=== PATIENT | female | born 1940 | race Caucasian/White ===

== ENCOUNTER 2018-08-19 12:22 | Inpatient (IN) ==
[2018-08-19] MEDS ORDERED: IOPAMIDOL 100 ML BOTTLE IV ONE (12:23)
--- NOTE | 2018-08-19 12:44 | Cat Scan Report ---
CLINICAL INFORMATION: COMPARISON: None. TECHNIQUE: 2.5 mm helical slices were obtained in the skull base to vertex. Following reconstruction, axial reformatted images were reviewed at bone and parenchymal windows. The exam was performed using radiation dose optimization techniques including, but not limited to, automated exposure control, adjustment of the mA and/or kV according to patient size and use of iterative reconstruction technique. FINDINGS: The ventricles, sulci, fissures, and cisterns are symmetrically are compatible with mild atrophy. No subdural hemorrhage or extra-axial fluid collection appreciated. Patchy chronic ischemic changes noted in the deep cerebral white matter are expanded for age. There is a vague 2.5 cm low-attenuation region in the left frontal subcortical and deep cerebral white matter which may represent ischemia or, less likely, underlying mass. Moderate remote wedge-shaped infarct in the inferior right cerebellum is smaller adjacent lacunar infarct. Bone windows show no osseous abnormality. IMPRESSION: 2.5 cm vague low-attenuation lesion in the deep/subcortical white matter of the left frontal lobe. This is likely a subacute infarct on: However, the possibility of underlying mass cannot be excluded. Suggest head CT with contrast as the next step in evaluation Moderate remote wedge-shaped in infarct in the inferior right cerebellum with small adjacent remote lacunar infarct. Mild atrophy and chronic ischemic changes in the cerebral white matter. Interpreted and Authenticated by: Wesley Edwards 08/19/18
[2018-08-19 13:06] LABS: Basophils # (Auto) 0.1 K/mcL (0.0-0.3); Basophils % (Auto) 1.7 % (0.0-2.0); Eosinophils # (Auto) 0.4 K/mcL (0.0-0.7); Eosinophils % (Auto) 4.4 % (0.0-7.0); Granulocytes % (Auto) 56.4 % (38.0-78.0); Lymphocytes # (Auto) 2.4 K/mcL (1.5-4.8); Lymphocytes % (Auto) 30.4 % (15.5-49.0); Mean Cell Volume 91.7 fL (80.0-100.0); Mean Corpuscular HGB Conc 33.1 g/dL (31.0-36.0); Monocytes # (Auto) 0.6 K/mcL (0.1-0.9); Monocytes % (Auto) 7.1 % (1.0-12.0); Platelet Count 216 K/mcL (140-440); RBC 4.73 M/mcL (4.00-5.20); Red Cell Distribution Width 12.6 % (11.5-14.5)
[2018-08-19 13:33] LABS: ALT/SGPT 9 U/l (0-40); Albumin 4.3 gm/dL (3.2-5.2); Albumin/Globulin Ratio 1.3 (1.0-2.3); Alkaline Phosphatase 105 U/L (39-117); Blood Urea Nitrogen 13 mg/dl (8-23)
--- NOTE | 2018-08-19 14:59 | Emergency Department Note ---
Neuro HPI - General Chief Complaint: Stroke Symptoms Stated Complaint: stroke symptoms Time Seen by Provider: 08/19/18 12:35 Source: patient, family Mode of arrival: ambulatory Limitations: altered mental status - History of Present Illness HPI Narrative: 78-year-old female with history of altered mental status for the last 2 days especially noted expressive aphasia. She is unable to give me much in the way of meaningful history but she can answer yes or no questions. Her son notes that it has been at least 2 days maybe 3 since she was last normal. Normally she is able to answer questions very well and is very sharp. On Anticoagulants: No - Related Data Home Medications: Previous Rx's Medication Instructions Recorded buspirone 7.5 mg tablet 7.5 mg PO BID #60 tab 03/28/18 conjugated estrogens 1.25 mg tablet 1.25 mg PO QDAY #90 tab 05/07/18 ipratropium bromide 42 mcg (0.06 2 spray INTRANASAL TID #15 ml 06/11/18 %) nasal spray umeclidinium 62.5 mcg-vilanterol 1 inh INHALATION Q24H #60 each 06/11/18 25 mcg/actuation powdr for inhalation clobetasol 0.05 % topical ointment 1 applic TOPICAL QDAY PRN #30 g 07/02/18 levothyroxine 50 mcg tablet 50 mcg PO QDAY #90 tab 08/06/18 Allergies/Adverse Reactions: Allergies Allergy/AdvReac Type Severity Reaction Status Date / Time No Known Drug Allergies Allergy Unverified 07/02/18 08:01 Review of Systems Limitations: ROS unobtainable due to patients medical condition Past Medical History - Past Medical History PMF Narrative: Family History (Last Reviewed 06/27/17 @ 08:18 by Liz Espino CMA) Mother Stroke Unknown Stroke Medical History (Last Reviewed 06/27/17 @ 08:18 by Liz Espino CMA) Hormone replacement therapy (postmenopausal) (Acute) COPD (chronic obstructive pulmonary disease) (Acute) Tobacco abuse (Chronic) Osteoporosis (Chronic) Joint pain (Chronic) Muscle pain (Chronic) Past Surgical History (Last Reviewed 06/27/17 @ 08:18 by Liz Espino CMA) Hx of tonsillectomy (Acute) H/O colonoscopy (Chronic) H/O: hysterectomy (Chronic) Source: old records reviewed Surgical history ED: Reports: hysterectomy, tonsillectomy - Social History smoking status: Former smoker Physical Exam Thin female no acute distress resting comfortably. Normocephalic atraumatic. Conjunctive are clear sclerae nonicteric. No nasal discharge or congestion. Oropharynx is pink and moist. Posterior pharynx is clear. Neck is supple without lymphadenopathy thyromegaly or carotid bruit. Heart is regular rate and rhythm no murmur appreciated. Lungs are clear to auscultation bilaterally without wheezes rales rhonchi or respiratory distress. Abdomen soft nontender nondistended. No peritoneal signs or guarding. No rigidity or CVA tenderness. No peripheral edema. +2 radial pulse. Alert and does appear to be oriented as well judging by her answers to yes or no questions but she does have significant expressive aphasia and cannot answer complex questions. Further it is not clear if her answers are reliable either. Face is symmetrical. Cranial nerves II through XII grossly intact. Bilateral marionette performer are equal and arm strength and leg strength bilaterally appear to be normal. She can sit up for my exam without any difficulty or assistance. At this time it seems that her only neurologic deficit is his significant expressive aphasia Limitations: altered mental status Course Vital Signs Temperature 98.1 F 08/19/18 12:26 Pulse Rate 80 08/19/18 12:26 Respiratory Rate 13 08/19/18 12:26 Blood Pressure 183/111 08/19/18 12:26 Pulse Oximetry (%) 98 08/19/18 12:26 Temperature 97.8 F 08/20/18 04:00 Pulse Rate 82 08/20/18 04:00 Respiratory Rate 18 08/20/18 04:00 Blood Pressure 136/87 08/20/18 04:00 Pulse Oximetry (%) 94 08/20/18 04:00 Neuro Symptoms/Deficit - Lab Data Lab results reviewed: Yes I reviewed the patient's lab results. Result diagrams: 08/19/18 12:33 08/19/18 12:33 Lab Results 08/19/18 08/19/18 08/19/18 Range/Units 12:33 12:33 12:33 WBC 8.1 (4.5-11.0) K/mcL RBC 4.73 (4.00-5.20) M/mcL Hgb 14.4 (12.0-15.0) g/dL Hct 43.4 (36.0-48.0) % POC Hct 45.0 (36.0-48.0) % MCV 91.7 (80.0-100.0) fL MCH 30.3 (26.0-34.0) pg MCHC 33.1 (31.0-36.0) g/dL RDW 12.6 (11.5-14.5) % Plt Count 216 (140-440) K/mcL MPV 9.1 (7.4-10.4) fL Gran % 56.4 (38.0-78.0) % Lymph % (Auto) 30.4 (15.5-49.0) % [place] % (Auto) 7.1 (1.0-12.0) % Eos % (Auto) 4.4 (0.0-7.0) % Baso % (Auto) 1.7 (0.0-2.0) % Gran # 4.5 (1.8-8.0) K/mcL Lymph # (Auto) 2.4 (1.5-4.8) K/mcL [place] # (Auto) 0.6 (0.1-0.9) K/mcL Eos # (Auto) 0.4 (0.0-0.7) K/mcL Baso # (Auto) 0.1 (0.0-0.3) K/mcL POC PT 11.6 L (11.9-14.5) sec POC INR 1.0 (0.9-1.2) APTT 35 (20-37) sec POC Sodium 139 (133-145) mmol/L Sodium 138 (133-145) mmol/L POC Potassium 3.6 (3.3-5.1) mmol/L Potassium 3.7 (3.3-5.1) mmol/L POC Chloride 100 (96-108) mmol/L Chloride 101 (96-108) mmol/L Carbon Dioxide 24 (22-30) mmol/L POC Total CO2 25 (22-30) mmol/L Anion Gap 13.0 (8-16) POC BUN 14 (8-23) mg/dl BUN 13 (8-23) mg/dl Creatinine 1.0 (0.6-1.1) mg/dl POC Creatinine 0.8 (0.6-1.1) mg/dl GFR Calculation 54 Glucose 91 (70-105) mg/dL POC Glucose 90 (70-105) mg/dL Calcium 9.3 (8.6-10.4) mg/dl POC WB Ioniz Calcium 1.13 L (1.16-1.32) mmol/L Total Bilirubin 0.4 (0.0-1.0) mg/dL AST 16 (0-37) U/l ALT 9 (0-40) U/l Alkaline Phosphatase 105 (39-117) U/L Troponin T (0-0.03) ng/ml Total Protein 7.7 (5.9-8.4) gm/dL Albumin 4.3 (3.2-5.2) gm/dL Globulin 3.4 (2.2-3.7) gm/dL Albumin/Globulin Ratio 1.3 (1.0-2.3) 08/19/18 Range/Units 12:33 WBC (4.5-11.0) K/mcL RBC (4.00-5.20) M/mcL Hgb (12.0-15.0) g/dL Hct (36.0-48.0) % POC Hct (36.0-48.0) % MCV (80.0-100.0) fL MCH (26.0-34.0) pg MCHC (31.0-36.0) g/dL RDW (11.5-14.5) % Plt Count (140-440) K/mcL MPV (7.4-10.4) fL Gran % (38.0-78.0) % Lymph % (Auto) (15.5-49.0) % [place] % (Auto) (1.0-12.0) % Eos % (Auto) (0.0-7.0) % Baso % (Auto) (0.0-2.0) % Gran # (1.8-8.0) K/mcL Lymph # (Auto) (1.5-4.8) K/mcL [place] # (Auto) (0.1-0.9) K/mcL Eos # (Auto) (0.0-0.7) K/mcL Baso # (Auto) (0.0-0.3) K/mcL POC PT (11.9-14.5) sec POC INR (0.9-1.2) APTT (20-37) sec POC Sodium (133-145) mmol/L Sodium (133-145) mmol/L POC Potassium (3.3-5.1) mmol/L Potassium (3.3-5.1) mmol/L POC Chloride (96-108) mmol/L Chloride (96-108) mmol/L Carbon Dioxide (22-30) mmol/L POC Total CO2 (22-30) mmol/L Anion Gap (8-16) POC BUN (8-23) mg/dl BUN (8-23) mg/dl Creatinine (0.6-1.1) mg/dl POC Creatinine (0.6-1.1) mg/dl GFR Calculation Glucose (70-105) mg/dL POC Glucose (70-105) mg/dL Calcium (8.6-10.4) mg/dl POC WB Ioniz Calcium (1.16-1.32) mmol/L Total Bilirubin (0.0-1.0) mg/dL AST (0-37) U/l ALT (0-40) U/l Alkaline Phosphatase (39-117) U/L Troponin T < 0.01 (0-0.03) ng/ml Total Protein (5.9-8.4) gm/dL Albumin (3.2-5.2) gm/dL Globulin (2.2-3.7) gm/dL Albumin/Globulin Ratio (1.0-2.3) - Radiology Data Radiology results reviewed: Yes I reviewed the patient's radiology results. CT of the head shows a subacute left frontal CVA. Old right cerebellar infarct is noted - EKG Data EKG attestation: Yes I reviewed and interpreted this EKG. EKG results narrative: EKG shows a rate of 74 with left ventricular hypertrophy criteria likely. Low voltage precordial leads. Q waves in 2 3 aVF the inferior leads . sinus rhythm without evidence of current ischemia Disposition Pt seen by PARA PROFESSIONAL/PA only: No Clinical Impression: CVA (cerebral vascular accident) Qualifiers: CVA mechanism: unspecified Qualified Code(s): I63.9 - Cerebral infarction, unspecified Summary: Seen and evaluated promptly but as patient had been at least 2 days with symptoms she is out of the treatment window. Preliminary CT scan without contrast of the head shows subacute left temporal CVA consistent with history Laboratories are essentially normal. Tele-stroke contacted. I discussed the situation with Dr. Cabello, the tele-stroke neurologist, who agreed the patient needed further workup. He felt that patient could be admitted here and have that done; patient was not eligible for intervention and therefore did not need to go to [facility] I then discussed situation with Dr. Gallarod the hospitalist who agreed to accept patient for further care and evaluation here Disposition: Xfer As Inpt ([facility]) Condition: Fair
--- NOTE | 2018-08-19 16:06 | Cat Scan Report ---
CLINICAL INFORMATION: Code stroke COMPARISON: None. TECHNIQUE: 80 cc of Isovue-300 were injected intravenously , and using SmartPrep to maximize cerebral arterial opacification, 0.625 mm helical slices were obtained from the skull base through the cerebral vertex. Following reconstruction , sagittal, coronal and axial reformatted images were processed and reviewed at multiple windows and levels. 3D volume rendered and MIP images were acquired at a independent workstation. The exam was performed using radiation dose optimization techniques including, but not limited to, automated exposure control, adjustment of the mA and/or kV according to patient size and use of iterative reconstruction technique. FINDINGS: Intracranial internal carotid, anterior and middle cerebral arteries, intracranial vertebral, basilar and posterior cerebral arteries and their branches are well-opacified and normal in contour and caliber without stenosis, occlusion or other abnormality. The low-attenuation lesion in the left frontal lobe was studied on delayed images. This does not show normal enhancement and should merely represent a moderate-sized focus of chronic ischemia. IMPRESSION: Intra-arterial vascular is unremarkable. Interpreted and Authenticated by: Wesley Edwards 08/19/18
--- NOTE | 2018-08-19 16:08 | Cat Scan Report ---
CLINICAL INFORMATION: Code stroke COMPARISON: None. TECHNIQUE: 80 cc of Isovue-300 were injected intravenously, and using SmartPrep to maximize arterial opacification, 0.625 mm helical slices were obtained from the thoracic aortic arch through the mechoopda of [place]. Following reconstruction, 1.25 mm sagittal, coronal and axial reformatted images were processed and reviewed at standard and bone algorithm/window. 3-D volume rendered, CPR and MIP images were processed using a [employer] work station.The exam was performed using radiation dose optimization techniques including, but not limited to, automated exposure control, adjustment of the mA and/or kV according to patient size and use of iterative reconstruction technique. FINDINGS: Thoracic aortic arch is normal in contour and caliber. Aortic branching is conventional. The brachiocephalic, both common, internal, external carotid and vertebral arteries are widely patent. No soft tissue abnormalities IMPRESSION: Normal Interpreted and Authenticated by: Wesley Edwards 08/19/18
--- NOTE | 2018-08-19 16:59 | Internal Med History&Physical ---
Medical - H&P: HPI Patient information: Note initiated : 08/19/18 at 4:57 pm Service Date, if different from initiated Date: [] Patient: Marissa Barba 78 y/o F admitted on for stroke symptoms. Chief Complaint: [] History of present illness: Ms. Barba is a 78 year old F brought in by her son and her today for evaluation of change in behavior for the last 2 days. According to the family the patient has been normal 3 days ago, however since yesterday she has not been herself. She was feeling weak and tired very cold yesterday afternoon, and also was unable to answer questions appropriately. The patient usually is very good with her math, is very good at playing cards however they noticed that the patient was unable to do things that she was very good at doing until recently. The patient this morning also had some speech difficulty and therefore the patient was brought to the hospital for further management. The patient is able to answer questions simple questions but not able to provide a complete and a detailed history. According to the family there was no weakness that was noted. No slurring of speech no deviation of the mouth. The patient denies any headache changes in vision denies any difficulty in swallowing no chest pain palpitations cough denies any nausea vomiting belly pain bowel or bladder complaints. Denies any balance issues denies any sensory loss or denies any motor weakness. In the hospital on presentation The patient is afebrile, blood pressure 183/111, saturating 95% on room air heart rate 80. Labs are unremarkable EKG shows sinus rhythm Head CT shows left frontotemporal lobe 2.[address] angiogram of the head and neck is negative for any atherosclerotic disease. The plan of care was reviewed with stroke neurologist who did not recommend any intervention. Patient is being admitted to the hospital for further management. All systems: reviewed and no additional remarkable complaints except as stated ( As per HPI rest negative) Medical - H&P: PMH Medical history: Medical History (Last Reviewed 06/27/17 @ 08:18 by Liz Espino CMA) Hormone replacement therapy (postmenopausal) (Acute) COPD (chronic obstructive pulmonary disease) (Acute) Tobacco abuse (Chronic) Osteoporosis (Chronic) Joint pain (Chronic) Muscle pain (Chronic) Surgical history: Past Surgical History (Last Reviewed 06/27/17 @ 08:18 by Liz Espino CMA) Hx of tonsillectomy (Acute) H/O colonoscopy (Chronic) H/O: hysterectomy (Chronic) Pertinent family history: Family History (Last Reviewed 06/27/17 @ 08:18 by Liz Espino CMA) Mother Stroke Unknown Stroke Medical - H&P: Meds Home Medications Medication Instructions Recorded Confirmed Type buspirone 7.5 mg tablet 7.5 mg PO BID #60 tab 03/28/18 07/02/18 Rx conjugated estrogens 1.25 mg tablet 1.25 mg PO QDAY #90 tab 05/07/18 07/02/18 Rx ipratropium bromide 42 mcg (0.06 2 spray INTRANASAL TID #15 ml 06/11/18 Rx %) nasal spray umeclidinium 62.5 mcg-vilanterol 1 inh INHALATION Q24H #60 each 06/11/18 Rx 25 mcg/actuation powdr for inhalation clobetasol 0.05 % topical ointment 1 applic TOPICAL QDAY PRN #30 g 07/02/1802/11 Rx levothyroxine 50 mcg tablet 50 mcg PO QDAY #90 tab 08/06/18 Rx Allergies Allergy/AdvReac Type Severity Reaction Status Date / Time No Known Drug Allergies Allergy Unverified 07/02/18 08:01 Medical - H&P: Exam - Constitutional Vitals: Temp Pulse Resp BP Pulse Ox 98.1 F 77 19 167/99 93 08/19/18 12:26 08/19/18 16:45 08/19/18 16:45 08/19/18 16:41 08/19/18 16:45 Exam: GENERAL: The patient is a well-developed, well-nourished in no apparent distress. Is alert and oriented x3. VITAL SIGNS: Reviewed and as noted elsewhere. HEENT: Head is normocephalic and atraumatic. Extraocular muscles are intact. Pupils are equal, round, and reactive to light. Nares appeared normal. Mouth appears any without lesions. Mucous membranes are moist. NECK: Normal to inspection, Supple, No lymphadenopathy or thyromegaly. LUNGS: Air entry equal on both sides, no wheezing, crackles or rhonchi noted. No accessory muscles of respiration HEART: Regular rate and rhythm normal, S1 and S2 heard, no Gallop, S3 or Rub Noted, No Gross murmur heard. ABDOMEN: Soft, nontender, and nondistended. Positive bowel sounds. No hepatosplenomegaly was noted. EXTREMITIES: No cyanosis, clubbing, rash, lesions or edema. NEUROLOGIC: Cranial nerves II through XII are grossly intact. Motor 5/5 upper and lower extremity, sensorly exam grossly normal, Reflex + DTR on biceps and knee bilaterally. pt however unable to read a watch, unable to calculate 5+ 3, although she named her correctly, she called him her sister, loss of relationships noted. PSYCHIATRIC: Normal affect, Normal Mood. Appropriate Behavior. SKIN: No ulceration or wounds noted, No jaundice, No rash noted. Medical - H&P: Reslt - Labs CBC & Chem 7: 08/19/18 12:33 08/19/18 12:33 Labs: Short CBC 08/19/18 Range/Units 12:33 WBC 8.1 (4.5-11.0) K/mcL Hgb 14.4 (12.0-15.0) g/dL Hct 43.4 (36.0-48.0) % Plt Count 216 (140-440) K/mcL BMP 08/19/18 12:33 Sodium 138 Potassium 3.7 Chloride 101 Carbon Dioxide 24 BUN 13 Creatinine 1.0 Glucose 91 Calcium 9.3 Cardiac Enzymes 08/19/18 Range/Units 12:33 Troponin T < 0.01 (0-0.03) ng/ml Liver Function 08/19/18 Range/Units 12:33 Total Bilirubin 0.4 (0.0-1.0) mg/dL AST 16 (0-37) U/l ALT 9 (0-40) U/l Alkaline Phosphatase 105 (39-117) U/L Albumin 4.3 (3.2-5.2) gm/dL Medical - H&P: A/P - Narrative A/P Narrative: A/P Acute Frontotemporal CVA/Left- No obvious deficit motor or sensory on my exam, NIH score was 7 on presentation. No intervention planned. ASA to be started given its been 48 hrs now, no hemorrhagic conversion. -Start on ASA 81 daily -start on statin -CTA head and neck is negative, -ECG does not show Atrial fibrillation -Check a1c, lipid, tsh -monitor on tele -get echo -neurocheck q4hrs -allow permissive HTN -OT/PT/ST eval h/o copd- H/op tobacco use, quit -duonebs prn DVT -hep sq Cardiac diet Full code Social History - Social History marital status: other: Children-3 - Tobacco smoking status: Former smoker - Cigarette Details per day: 7 - Quit Details quit date: 09/02/16 - Alcohol alcohol intake frequency: a few times a week - Substance use substance use type: does not use
[2018-08-19] MEDS ORDERED: ONDANSETRON 4 MG/2 ML VIAL IV PRN (17:46)
[2018-08-19] MEDS ORDERED: ASPIRIN 81 MG TAB.CHEW CHEWED ONE (17:46)
[2018-08-19] MEDS ORDERED: NALOXONE HCL 0.4 MG/ML VIAL IV PRN (17:46)
[2018-08-19] MEDS ORDERED: ACETAMINOPHEN 325 MG TABLET PO PRN (17:46)
[2018-08-19 18:18] LABS: HDL Cholesterol 99 mg/dl (>40); LDL Cholesterol,Calculated 100 mg/dl (SEE CHART)
[2018-08-19 18:26] LABS: Estimated Average Glucose(eAG) 117 mg/dL; Hemoglobin A1C 5.7 % HGB (4.0-6.0)
[2018-08-19] MEDS: HEPARIN 5,000 UNIT/ML VIAL SQ SCH (21:23)
[2018-08-19] MEDS: ATORVASTATIN 20 MG TABLET PO SCH (21:23)
[2018-08-19] MEDS: 0.9 % SODIUM CHLORIDE 10 ML SYRINGE IV SCH (21:34)
[2018-08-20] MEDS: 0.9 % SODIUM CHLORIDE 10 ML SYRINGE IV SCH ×3 (07:13→21:51)
[2018-08-20] MEDS: HEPARIN 5,000 UNIT/ML VIAL SQ SCH ×2 (08:58→21:50)
[2018-08-20] MEDS: ASPIRIN 81 MG TAB.CHEW PO SCH (08:58)
--- NOTE | 2018-08-20 15:11 | Internal Med Progress Note ---
Medical - PN: Subj Patient information: Note initiated : 08/20/18 at 3:07 pm Service Date, if different from initiated Date: [] Patient: Marissa Barba 78 y/o F admitted on 08/19/18 for stroke symptoms. Chief Complaint: [] Interval history: Ms. Barba is a 78 year old F brought in by her son and her today for evaluation of change in behavior for the last 2 days. According to the family the patient has been normal 3 days ago, however since yesterday she has not been herself. She was feeling weak and tired very cold yesterday afternoon, and also was unable to answer questions appropriately. The patient usually is very good with her math, is very good at playing cards however they noticed that the patient was unable to do things that she was very good at doing until recently. The patient this morning also had some speech difficulty and therefore the patient was brought to the hospital for further management. The patient is able to answer questions simple questions but not able to provide a complete and a detailed history. According to the family there was no weakness that was noted. No slurring of speech no deviation of the mouth. The patient denies any headache changes in vision denies any difficulty in swallowing no chest pain palpitations cough denies any nausea vomiting belly pain bowel or bladder complaints. Denies any balance issues denies any sensory loss or denies any motor weakness. In the hospital on presentation The patient is afebrile, blood pressure 183/111, saturating 95% on room air heart rate 80. Labs are unremarkable EKG shows sinus rhythm Head CT shows left frontotemporal lobe 2.[address] angiogram of the head and neck is negative for any atherosclerotic disease. The plan of care was reviewed with stroke neurologist who did not recommend any intervention. Patient is being admitted to the hospital for further management. 08/20 Pt seen examined, no acute changes tele does not show any afib, moreno have intermittent irregular HR (2 types of p wave but no afib) labs stable speech somewhat better, but overall no change. Pertinent ROS: Denies headache, dizziness Denies chest pain, palpitations Denies cough or shortness of breath Denies abdominal pain, nausea or vomiting. - Constitutional Vitals: Vital Signs Temp Pulse Resp BP Pulse Ox 97.8 F 91 H 16 148/78 94 08/20/18 11:56 08/20/18 08:00 08/20/18 11:56 08/20/18 11:56 08/20/18 11:56 Period Temp Pulse Resp BP Sys/Hoffmann Pulse Ox Last 24 Hr 97.8 F-98.1 F 72-135 14-24 130-180/78-154 92-99 Intake and Output 08/20/18 08/20/18 08/20/18 05:59 13:59 21:59 Output Total 250 / 250 250 / 250 Balance -250 / -250 -250 / -250 Intake & Output: Intake & Output 08/20/18 08/20/18 08/20/18 05:59 13:59 21:59 Output Total 250 / 250 250 / 250 Balance -250 / -250 -250 / -250 Output: Void Amount 250 / 250 250 / 250 Other: Urine Appearance Clear Urine Color Bright Yellow Urine Odor Strong Exam: Constitutional; Afebrile, cooperative, alert, not in distress. Eyes- No icterus, , No periorbital swelling Ears- Ext ear normal, hearing normal to conversation. Neck- Midline trachea, supple Respiratory system: Air Entry equal on both sides, No crackles or wheezing, no rhonchi. CVS- Rate rhythm regular, S1,S2 heard, no gallop, no rub. Abdomen- Soft nontender abdomen, no organomegaly, no tenderness, no guarding or rigidity, CORE DRIER- AOOx3, moving all extremities, unchanged exam. The patient is able to speak ok now, understands some questions well, but f inding it hard to get relationships. Called her brother her sister, today was not able to identify her son as her son but called him her brother. unable to give time, date, unable to do 2+2 basic multiplication She was able to follow commands like raise left hand and raise right hand, draw a triangle HOwever when Occupational therapist asked her to identify a triangle, she was unable to do so, Medical - PN: Obj Da - Labs CBC & Chem 7: 08/19/18 12:33 08/19/18 12:33 Labs: Abnormal Lab Results 08/19/18 08/19/18 08/19/18 17:46 12:33 12:33 POC PT 11.6 L POC WB Ioniz Calcium 1.13 L Cholesterol 221 H Meds: Medications Acetaminophen (Tylenol) 650 mg PO Q6HP PRN PRN Reason: PAIN/FEVER > 101 Aspirin (Aspirin) 81 mg PO DAILY [facility] Last Admin: 08/20/18 08:58 Dose: 81 mg Atorvastatin Calcium (Lipitor) 40 mg PO HS [facility] Last Admin: 08/19/18 21:23 Dose: 40 mg Heparin Sodium (Porcine) (Heparin) 5,000 unit SQ Q12 [facility] Last Admin: 08/20/18 08:58 Dose: 5,000 unit Naloxone HCl (Narcan) 0.1 mg IV Q2MIN PRN PRN Reason: Opiate Reversal Ondansetron HCl (Zofran) 4 mg IV Q4HP PRN PRN Reason: Nausea And Vomiting Sodium Chloride (Saline Flush) 10 ml IV Q8 [facility] Last Admin: 08/20/18 14:22 Dose: 10 ml Medical - PN: A/P - Time Spent With Patient Total time spent is greater than 50% in coordination of care (as documented) at patient's floor/unit and/or counseling patient: - Narrative A/P Narrative: A/P Pt has Acute CVA with cognitive deficits, I will change her status from obs to inpatient starting from admission. Acute Frontotemporal CVA/Left- No obvious deficit motor or sensory on my exam, -continue to monitor on tele, -on asa and statin, -awaiting echo -bp stable h/o copd- H/op tobacco use, quit -duonebs prn DVT -hep sq Cardiac diet Full code Medical - PN: Qual - VTE Deep Vein Thrombosis/Pulmonary Embolism Present on Admission: No
[2018-08-20] MEDS: ATORVASTATIN 20 MG TABLET PO SCH (21:50)
[2018-08-21] MEDS: 0.9 % SODIUM CHLORIDE 10 ML SYRINGE IV SCH ×3 (06:33→20:28)
[2018-08-21] MEDS: UMECLIDINIUM INH SCH (10:07)
[2018-08-21] MEDS: VILANTEROL INH SCH (10:07)
[2018-08-21] MEDS: busPIRone 5 MG TABLET PO SCH ×2 (10:19→20:28)
[2018-08-21] MEDS: ASPIRIN 81 MG TAB.CHEW PO SCH (10:19)
[2018-08-21] MEDS: HEPARIN 5,000 UNIT/ML VIAL SQ SCH ×2 (10:19→20:28)
[2018-08-21] MEDS: LEVOTHYROXINE 50 MCG TABLET PO SCH (10:19)
--- NOTE | 2018-08-21 15:57 | Internal Med Progress Note ---
Medical - PN: Subj Patient information: Note initiated : 08/21/18 at 3:53 pm Service Date, if different from initiated Date: [] Patient: Marissa Barba 78 y/o F admitted on 08/19/18 for stroke symptoms. Chief Complaint: [] Interval history: Ms. Barba is a 78 year old F brought in by her son and her today for evaluation of change in behavior for the last 2 days. According to the family the patient has been normal 3 days ago, however since yesterday she has not been herself. She was feeling weak and tired very cold yesterday afternoon, and also was unable to answer questions appropriately. The patient usually is very good with her math, is very good at playing cards however they noticed that the patient was unable to do things that she was very good at doing until recently. The patient this morning also had some speech difficulty and therefore the patient was brought to the hospital for further management. The patient is able to answer questions simple questions but not able to provide a complete and a detailed history. According to the family there was no weakness that was noted. No slurring of speech no deviation of the mouth. The patient denies any headache changes in vision denies any difficulty in swallowing no chest pain palpitations cough denies any nausea vomiting belly pain bowel or bladder complaints. Denies any balance issues denies any sensory loss or denies any motor weakness. In the hospital on presentation The patient is afebrile, blood pressure 183/111, saturating 95% on room air heart rate 80. Labs are unremarkable EKG shows sinus rhythm Head CT shows left frontotemporal lobe 2.[address] angiogram of the head and neck is negative for any atherosclerotic disease. The plan of care was reviewed with stroke neurologist who did not recommend any intervention. Patient is being admitted to the hospital for further management. 08/20 Pt seen examined, no acute changes tele does not show any afib, moreno have intermittent irregular HR (2 types of p wave but no afib) labs stable speech somewhat better, but overall no change. 08/21 pt seen examined, able to speak but does not have good understanding of the questions asked neuro exam essentially unchanged. get MRI today for proper delination of the extent of cva plan for D/C in AM no events on tele Pertinent ROS: Denies headache, dizziness Denies chest pain, palpitations Denies cough or shortness of breath Denies abdominal pain, nausea or vomiting. - Constitutional Vitals: Vital Signs Temp Pulse Resp BP Pulse Ox 98.2 F 81 20 144/81 95 08/21/18 15:48 08/21/18 08:00 08/21/18 15:48 08/21/18 15:48 08/21/18 15:48 Period Temp Pulse Resp BP Sys/Hoffmann Pulse Ox Last 24 Hr 97.8 F-99.2 F 80-81 12-20 142-162/75-92 93-99 Intake and Output 08/21/18 08/21/18 08/21/18 05:59 13:59 21:59 Intake Total 240 / 240 100 / 100 Output Total 450 / 450 0 / 0 Balance -450 / -450 240 / 240 100 / 100 Weight 106 lb Patient Weight 08/22/18 05:59 Weight 106 lb Intake & Output: Intake & Output 08/21/18 08/21/18 08/21/18 05:59 13:59 21:59 Intake Total 240 / 240 100 / 100 Output Total 450 / 450 0 / 0 Balance -450 / -450 240 / 240 100 / 100 Weight 106 lb Intake: Oral 240 / 240 100 / 100 Output: Void Amount 450 / 450 # of times incontinent of urine 0 / 0 Other: Meal Breakfast Percent of Meal Consumed 25% Feeding Ability Assist with Tray Set Up Urine Appearance Clear Urine Color Bright Yellow Urine Odor Strong # Voids 1 Exam: Constitutional; Afebrile, cooperative, alert, not in distress. Respiratory system: Air Entry equal on both sides, No crackles or wheezing, no rhonchi. CVS- Rate rhythm regular, S1,S2 heard, no gallop, no rub. 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 unchanged aphasia exam . Medical - PN: Obj Da - Labs CBC & Chem 7: 08/19/18 12:33 08/19/18 12:33 Labs: Abnormal Lab Results 08/19/18 08/19/18 08/19/18 17:46 12:33 12:33 POC PT 11.6 L POC WB Ioniz Calcium 1.13 L Cholesterol 221 H Meds: Medications Acetaminophen (Tylenol) 650 mg PO Q6HP PRN PRN Reason: PAIN/FEVER > 101 Aspirin (Aspirin) 81 mg PO DAILY [facility] Last Admin: 08/21/18 10:19 Dose: 81 mg Atorvastatin Calcium (Lipitor) 40 mg PO HS [facility] Last Admin: 08/20/18 21:50 Dose: 40 mg Buspirone HCl (Buspar) 7.5 mg PO BID [facility] Last Admin: 08/21/18 10:19 Dose: 7.5 mg Calcium Carbonate/Glycine (Oscal) 1,000 mg PO DAILY [facility] Diphenhydramine HCl (Benadryl) 50 mg PO HS [facility] Heparin Sodium (Porcine) (Heparin) 5,000 unit SQ Q12 [facility] Last Admin: 08/21/18 10:19 Dose: 5,000 unit Levothyroxine Sodium (Synthroid) 50 mcg PO QAMAC [facility] Last Admin: 08/21/18 10:19 Dose: 50 mcg Naloxone HCl (Narcan) 0.1 mg IV Q2MIN PRN PRN Reason: Opiate Reversal Ondansetron HCl (Zofran) 4 mg IV Q4HP PRN PRN Reason: Nausea And Vomiting Umeclidinium/Vilanterol 62.5/25 Mcg Inhaler 1 dose INH DAILY [facility] Last Admin: 08/21/18 10:07 Dose: 1 dose Sodium Chloride (Saline Flush) 10 ml IV Q8 [facility] Last Admin: 08/21/18 13:39 Dose: 10 ml Medical - PN: A/P - Time Spent With Patient Total time spent is greater than 50% in coordination of care (as documented) at patient's floor/unit and/or counseling patient: - Narrative A/P Narrative: A/P Acute Frontotemporal CVA/Left- No obvious deficit motor or sensory on my exam, -continue to monitor on tele, -on asa and statin, -awaiting echo -bp stable -get MRI h/o copd- H/op tobacco use, quit -duonebs prn DVT -hep sq Cardiac diet Full code Medical - PN: Qual - VTE Deep Vein Thrombosis/Pulmonary Embolism Present on Admission: No
--- NOTE | 2018-08-21 16:57 | Magnetic Resonance Report ---
CLINICAL INFORMATION: Decreased mental status COMPARISON: Head CT 08/19/2018 TECHNIQUE:Sagittal T1 FLAIR, axial T1 FLAIR, T2 FLAIR propeller, T2 propeller, gradient, diffusion, ADC and coronal T2 weighted images were acquired. FINDINGS: The ventricles, sulci, fissures and cisterns are symmetrically enlarged both mild age-related atrophy. No extra-axial fluid collection or mass appreciated. A moderate-sized late acute infarct in the posterior left frontal lobe is appreciated. This is manifest as low T1 signal, increased signal on T2/FLAIR, restricted diffusion and gyral swelling. No evidence of hemorrhage. A moderate size old wedge-shaped infarct in the inferior right cerebellar vermis measure 3 x 1 cm. There are 2-3 small adjacent lacunar infarcts in the right cerebellar hemisphere. Scattered chronic ischemic foci noted in the the cerebral white matter - typical for age. Signal void in intracerebral arteries, extra-axial cranial nerves, pituitary and orbits are all normal. IMPRESSION: 1. Moderate, late acute (5-7 days) infarct in the posterior left frontal lobe. No evidence of hemorrhage. 2. Moderate remote infarct inferior right cerebellar vermis with 2-3 smaller remote lacunar infarcts in the adjacent inferior right cerebellar hemisphere. 3. Mild age-related atrophy and scattered chronic ischemic foci in the cerebral white matter. Interpreted and Authenticated by: Wesley Edwards 08/21/18
[2018-08-21] MEDS: ATORVASTATIN 20 MG TABLET PO SCH (20:28)
[2018-08-21] MEDS ORDERED: diphenhydrAMINE 25 MG CAPSULE PO SCH (21:00)
[2018-08-22] MEDS: 0.9 % SODIUM CHLORIDE 10 ML SYRINGE IV SCH ×4 (07:54→23:57)
[2018-08-22] MEDS: LEVOTHYROXINE 50 MCG TABLET PO SCH (07:55)
[2018-08-22] MEDS: VILANTEROL INH SCH (08:32)
[2018-08-22] MEDS: UMECLIDINIUM INH SCH (08:32)
[2018-08-22] MEDS: ASPIRIN 81 MG TAB.CHEW PO SCH (08:33)
[2018-08-22] MEDS: HEPARIN 5,000 UNIT/ML VIAL SQ SCH ×2 (08:33→20:44)
[2018-08-22] MEDS: busPIRone 5 MG TABLET PO SCH ×2 (08:33→20:36)
[2018-08-22] MEDS ORDERED: CALCIUM (OYSTER SHELL) 500 MG TABLET PO SCH (09:00)
--- NOTE | 2018-08-22 12:52 | Internal Med Progress Note ---
Medical - PN: Subj Patient information: Note initiated : 08/22/18 at 12:47 pm Service Date, if different from initiated Date: [] Patient: Marissa Barba 78 y/o F admitted on 08/19/18 for stroke symptoms. Chief Complaint: [] Interval history: Ms. Barba is a 78 year old F brought in by her son and her today for evaluation of change in behavior for the last 2 days. According to the family the patient has been normal 3 days ago, however since yesterday she has not been herself. She was feeling weak and tired very cold yesterday afternoon, and also was unable to answer questions appropriately. The patient usually is very good with her math, is very good at playing cards however they noticed that the patient was unable to do things that she was very good at doing until recently. The patient this morning also had some speech difficulty and therefore the patient was brought to the hospital for further management. The patient is able to answer questions simple questions but not able to provide a complete and a detailed history. According to the family there was no weakness that was noted. No slurring of speech no deviation of the mouth. The patient denies any headache changes in vision denies any difficulty in swallowing no chest pain palpitations cough denies any nausea vomiting belly pain bowel or bladder complaints. Denies any balance issues denies any sensory loss or denies any motor weakness. In the hospital on presentation The patient is afebrile, blood pressure 183/111, saturating 95% on room air heart rate 80. Labs are unremarkable EKG shows sinus rhythm Head CT shows left frontotemporal lobe 2.[address] angiogram of the head and neck is negative for any atherosclerotic disease. The plan of care was reviewed with stroke neurologist who did not recommend any intervention. Patient is being admitted to the hospital for further management. 08/20 Pt seen examined, no acute changes tele does not show any afib, moreno have intermittent irregular HR (2 types of p wave but no afib) labs stable speech somewhat better, but overall no change. 08/21 pt seen examined, able to speak but does not have good understanding of the questions asked neuro exam essentially unchanged. get MRI today for proper delination of the extent of cva plan for D/C in AM no events on tele 08/22 Pt seen examined, no concerns, no new complaints neurologically stable MRI brain shows moderate size infarct Pt awaiting placement at this time xfer to med surg status. Pertinent ROS: Denies headache, dizziness Denies chest pain, palpitations Denies cough or shortness of breath Denies abdominal pain, nausea or vomiting. - Constitutional Vitals: Vital Signs Temp Pulse Resp BP Pulse Ox 98.3 F 87 22 136/62 96 08/22/18 12:00 08/22/18 12:00 08/22/18 12:00 08/22/18 12:00 08/22/18 12:00 Period Temp Pulse Resp BP Sys/Hoffmann Pulse Ox Last 24 Hr 98.2 F-99.6 F 70-87 16-22 136-166/62-90 95-96 Intake and Output 08/21/18 08/22/18 08/22/18 21:59 05:59 13:59 Intake Total 400 / 400 720 / 720 Output Total 0 / 0 Balance 400 / 400 720 / 720 Weight 108 lb Intake & Output: Intake & Output 08/21/18 08/22/18 08/22/18 21:59 05:59 13:59 Intake Total 400 / 400 720 / 720 Output Total 0 / 0 Balance 400 / 400 720 / 720 Weight 108 lb Intake: Oral 400 / 400 720 / 720 Output: # of times incontinent of urine 0 / 0 Other: Meal Dinner Lunch Percent of Meal Consumed 25% 75% Feeding Ability Assist with Tray Set Up Independent # Voids 1 1 Exam: Constitutional; Afebrile, cooperative, alert, not in distress. Eyes- No icterus, , No periorbital swelling Ears- Ext ear normal, hearing normal to conversation. Neck- Midline trachea, supple Respiratory system: Air Entry equal on both sides, No crackles or wheezing, no rhonchi. CVS- Rate rhythm regular, S1,S2 heard, no gallop, no rub. 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 she has predominantly cognitive invovlement from her CVA Medical - PN: Obj Da - Labs CBC & Chem 7: 08/19/18 12:33 08/19/18 12:33 Labs: Abnormal Lab Results 08/19/18 08/19/18 17:46 12:33 POC PT 11.6 L Cholesterol 221 H Meds: Medications Acetaminophen (Tylenol) 650 mg PO Q6HP PRN PRN Reason: PAIN/FEVER > 101 Aspirin (Aspirin) 81 mg PO DAILY [facility] Last Admin: 08/22/18 08:33 Dose: 81 mg Atorvastatin Calcium (Lipitor) 40 mg PO HS [facility] Last Admin: 08/21/18 20:28 Dose: 40 mg Buspirone HCl (Buspar) 7.5 mg PO BID [facility] Last Admin: 08/22/18 08:33 Dose: 7.5 mg Calcium Carbonate/Glycine (Oscal) 1,000 mg PO DAILY [facility] Last Admin: 08/22/18 08:33 Dose: 1,000 mg Diphenhydramine HCl (Benadryl) 50 mg PO HS [facility] Last Admin: 08/21/18 20:28 Dose: 50 mg Heparin Sodium (Porcine) (Heparin) 5,000 unit SQ Q12 [facility] Last Admin: 08/22/18 08:33 Dose: 5,000 unit Levothyroxine Sodium (Synthroid) 50 mcg PO QAMAC [facility] Last Admin: 08/22/18 07:55 Dose: 50 mcg Naloxone HCl (Narcan) 0.1 mg IV Q2MIN PRN PRN Reason: Opiate Reversal Ondansetron HCl (Zofran) 4 mg IV Q4HP PRN PRN Reason: Nausea And Vomiting Umeclidinium/Vilanterol 62.5/25 Mcg Inhaler 1 dose INH DAILY [facility] Last Admin: 08/22/18 08:32 Dose: 1 dose Sodium Chloride (Saline Flush) 10 ml IV Q8 [facility] Last Admin: 08/22/18 07:54 Dose: 10 ml Medical - PN: A/P - Time Spent With Patient Total time spent is greater than 50% in coordination of care (as documented) at patient's floor/unit and/or counseling patient: - Narrative A/P Narrative: A/P Acute Frontotemporal CVA/Left- No obvious deficit motor or sensory on my exam, -xfer to med surg status. -on asa and statin, -echo neg for any source of embolus. -bp stable -await placement. h/o copd- H/op tobacco use, quit -duonebs prn DVT -hep sq Cardiac diet Full code Medical - PN: Qual - VTE Deep Vein Thrombosis/Pulmonary Embolism Present on Admission: No
[2018-08-22] MEDS ORDERED: NALOXONE HCL 0.4 MG/ML VIAL IV PRN (13:14)
[2018-08-22] MEDS ORDERED: ACETAMINOPHEN 325 MG TABLET PO PRN (13:14)
[2018-08-22] MEDS ORDERED: ONDANSETRON 4 MG/2 ML VIAL IV PRN (13:14)
--- NOTE | 2018-08-22 13:19 | XRay Report ---
CLINICAL INFORMATION: Possible aspiration COMPARISON: 03/28/2018 FINDINGS: Cardiomediastinal silhouette is distorted by severe dextroscoliotic curve. Pulmonary vessels are normal. COPD changes noted, but no infiltrates. No effusions IMPRESSION: Stable COPD changes Interpreted and Authenticated by: Wesley Edwards 08/22/18
[2018-08-22] MEDS ORDERED: diphenhydrAMINE 25 MG CAPSULE PO SCH (21:00)
[2018-08-22] MEDS ORDERED: ATORVASTATIN 20 MG TABLET PO SCH (21:00)
[2018-08-23] MEDS: 0.9 % SODIUM CHLORIDE 10 ML SYRINGE IV SCH (05:27)
[2018-08-23] MEDS ORDERED: LEVOTHYROXINE 50 MCG TABLET PO SCH (07:30)
[2018-08-23] MEDS: busPIRone 5 MG TABLET PO SCH (08:42)
[2018-08-23] MEDS: HEPARIN 5,000 UNIT/ML VIAL SQ SCH (08:43)
[2018-08-23] MEDS ORDERED: UMECLIDINIUM INH SCH (09:00)
[2018-08-23] MEDS ORDERED: CALCIUM (OYSTER SHELL) 500 MG TABLET PO SCH (09:00)
[2018-08-23] MEDS ORDERED: VILANTEROL INH SCH (09:00)
[2018-08-23] MEDS ORDERED: ASPIRIN 81 MG TAB.CHEW PO SCH (09:00)
--- NOTE | 2018-08-23 09:47 | Discharge Summary ---
Medical - DS: Prov Patient information: Note initiated : 08/23/18 at 9:42 am Service Date, if different from initiated Date: [] Patient: Marissa Barba 78 y/o F admitted on 08/19/18 for stroke symptoms. Chief Complaint: [] Date of admission: 08/19/18 17:40 Discharge date: 08/23/18 Primary care physician: Reed Dotson Consults: 08/19/18 Consult to Physician [CONS] Stat Comment: Consulting Provider: Ellen Gallardo Reason For Exam: Physician to Consult Discharging clinician: Ellen Gallardo Medical - DS: Meds - Discharge Medications Prescriptions: Aspirin [Aspirin EC] 81 mg PO DAILY #90 tablet. Atorvastatin [Lipitor] 40 mg PO HS #90 tab Active and Home Medications: Home Medications buspirone 7.5 mg tablet 7.5 mg PO BID #60 tab 03/28/18 [Rx Confirmed 08/20/18 Last Taken Unknown] conjugated estrogens 1.25 mg tablet 1.25 mg PO QDAY #90 tab 05/07/18 [Rx Confirmed 08/20/18 Last Taken Unknown] umeclidinium 62.5 mcg-vilanterol 25 mcg/actuation powdr for inhalation 1 inh INHALATION Q24H #60 each 06/11/18 [Rx Confirmed 08/20/18 Last Taken Unknown] levothyroxine 50 mcg tablet 50 mcg PO QDAY #90 tab 08/06/18 [Rx Confirmed Last Taken Unknown] Calcium Carbonate [Calcium] 1,000 mg PO DAILY 08/20/18 [History Confirmed Last Taken Unknown] diphenhydrAMINE HCL [Benadryl] 50 mg PO HS 08/20/18 [History Confirmed 08/20/18 Last Taken Unknown] Medical - DS: Hosp Hospital course: Ms. Barba is a 78 year old F brought in by her son and her today for evaluation of change in behavior for the last 2 days. According to the family the patient has been normal 3 days ago, however since yesterday she has not been herself. She was feeling weak and tired very cold yesterday afternoon, and also was unable to answer questions appropriately. The patient usually is very good with her math, is very good at playing cards however they noticed that the patient was unable to do things that she was very good at doing until recently. The patient this morning also had some speech difficulty and therefore the patient was brought to the hospital for further management. The patient is able to answer questions simple questions but not able to provide a complete and a detailed history. According to the family there was no weakness that was noted. No slurring of speech no deviation of the mouth. The patient denies any headache changes in vision denies any difficulty in swallowing no chest pain palpitations cough denies any nausea vomiting belly pain bowel or bladder complaints. Denies any balance issues denies any sensory loss or denies any motor weakness. In the hospital on presentation The patient is afebrile, blood pressure 183/111, saturating 95% on room air heart rate 80. Labs are unremarkable EKG shows sinus rhythm Head CT shows left frontotemporal lobe 2.[address] angiogram of the head and neck is negative for any atherosclerotic disease. The plan of care was reviewed with stroke neurologist who did not recommend any intervention. Patient is being admitted to the hospital for further management. 08/20 Pt seen examined, no acute changes tele does not show any afib, moreno have intermittent irregular HR (2 types of p wave but no afib) labs stable speech somewhat better, but overall no change. 08/21 pt seen examined, able to speak but does not have good understanding of the questions asked neuro exam essentially unchanged. get MRI today for proper delination of the extent of cva plan for D/C in AM no events on tele 08/22 Pt seen examined, no concerns, no new complaints neurologically stable MRI brain shows moderate size infarct Pt awaiting placement at this time xfer to med surg status. 08/23 patient seen examined, no acute issues, mental status unchanged Insurance authorzied the patient stay for acute inpatient rehab, [facility] has accepted the patient. Will d/c with family to [facility] Dr Jose Maria Shane was the accepting physician. A Doc-to Doc phone conversation was held before discharge. In summary This is a pleasant 78 yr female who presented to the hospital with signs of cva , she was outside the window for TPA and therefore was admitted to this hospital for further management. The patient underwent a CT angiogram of the head and the neck which was negative, she was monitored on telemetry for 3 days without any evidence of atrial fibrillation, the patient was started on aspirin 81 mg as well as atorvastatin 40 mg once a day for secondary stroke prophylaxis. The predominant involvement in this patient with stroke his aphasia. 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 I have ordered a cryofibrinogen and a cryoglobulin level results of this is pending at this point. If the levels are elevated she would benefit from an evaluation by nurse intern. Discharge diagnosis: Acute CVA - Time Spent with Patient Total time spent providing and/or coordinating discharge services: Greater than 30 minutes Medical - DS: Exam - Constitutional Vitals: Vital Signs Temp Pulse Resp BP Pulse Ox 08/23/18 06:51 97.3 F 16 123/68 94 08/23/18 04:00 97.5 F 72 16 142/78 94 08/22/18 23:10 98.2 F 88 18 156/88 94 08/22/18 20:00 98 F 86 16 145/84 94 08/22/18 16:00 97.9 F 91 H 21 141/70 97 08/22/18 14:00 85 18 96 08/22/18 12:00 98.3 F 87 22 136/62 96 Intake and Output 08/22/18 08/23/18 08/23/18 21:59 05:59 13:59 Intake Total 360 / 360 360 / 360 Output Total 150 / 150 Balance 360 / 360 210 / 210 Intake: Oral 360 / 360 360 / 360 Output: Void Amount 150 / 150 Other: Meal Dinner Percent of Meal Consumed 50% Feeding Ability Independent Stool Size Moderate Stool Color Brown Stool Consistency Soft Formed # Bowel Movements 1 Weight 102 lb 8 oz Additional comments: Constitutional; Afebrile, cooperative, alert, not in distress. Eyes- No icterus, , No periorbital swelling Ears- Ext ear normal, hearing normal to conversation. Neck- Midline trachea, supple Respiratory system: Air Entry equal on both sides, No crackles or wheezing, no rhonchi. CVS- Rate rhythm regular, S1,S2 heard, no gallop, no rub. 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 aphasia present werknicke type Medical - DS: Data Labs on day of discharge: Labs from last 24 hours 08/21/18 09:43 STIVEN Screen Pos 1:80 or greater A STIVEN Titer 1:80 STIVEN Pattern Speckled Medical - DS: A/P - Patient/Caregiver Discharge Instructions Activity: as per physical therapy Diet: Cardiac Additional Instructions: Patient to follow up with PCP in 1-2 weeks after discharge from inpatient rehab. You have been started on Aspirin 81mg daily (take this medication with food), and atorvastatin 40mg. Both these medications are for stroke prophylaxis. The results of Cryoglobulin and cryofibrinogen were not available at the time of discharge, please talk with your primary care doctor about these results. If they are elevated, you will benefit from a evaluation by a nurse intern. Prescriptions: Aspirin [Aspirin EC] 81 mg PO DAILY #90 tablet. Atorvastatin [Lipitor] 40 mg PO HS #90 tab - Follow up Plan Follow up with: Reed Dotson MD [Primary Care Provider] - (Please call/schedule hospital follow up.) Disposition: Xfer Inpatient Rehab Fac Prognosis: Fair Rehab Potential: Fair I certify that the patient requires SNF services: No Overall status at discharge: patient is progressing back to baseline Medical - DS: Qual - VTE Deep Vein Thrombosis/Pulmonary Embolism Present on Admission: No
[2018-08-23 12:49] LABS: Complement C3 135.6 mg/dl (90-180)
== END 2018-08-23 10:25 | DRG 65 ==
LOC: ED 12:22 → ICU 17:40 → MEDSUR 08-22 13:53
PROVIDERS: ADMIT Internal Medicine; ATTEND Internal Medicine